=== PATIENT | female | born 1990 | race Two or more races ===

== ENCOUNTER 2017-03-13 22:33 | Emergency (ER) | payer OTHER ==
[~2017-03-13] VITALS: Ht 154.9 cm; Wt 54.4 kg
[~2017-03-13 22:33] MED LIST: ACYCLOVIR400 MG ORAL; CEPHALEXIN500 MG ORAL; DIFLUCAN150 MG PO; KEFLEX500 MG ORAL; PRENATAL FORMU1 EAC2 ORAL
[2017-03-13] MEDS ORDERED: NKM (22:56)
--- NOTE | 2017-03-13 23:22 | Emergency Room Report ---
History of Present Illness General Chief Complaint: Skin Rash/Abscess Source: Patient Present Illness HPI Patient presents with complaints of diffuse rash upper arms back lower extremity Onset earlier today Patient denies any fevers Denies any headache or visual changes denies any neck pain or photophobia She had some mild bodyache Denies any change in diet denies any medications Denies any shortness of breath or difficulty breathing Allergies: Coded Allergies: NO KNOWN ALLERGIES (Unverified Allergy, Unknown, 07/29/15) Patient History Past Medical History: see triage record Pertinent Family History: none Last Menstrual Period: unk Reviewed Nursing Documentation: PMH: Agreed, PSxH: Agreed Nursing Documentation-PMH Past Medical History: No Stated History Review of Systems All Other Systems: negative except mentioned in HPI Physical Exam Vital Signs Date Time Temp Pulse Resp B/P Pulse Ox O2 Delivery O2 Flow Rate FiO2 03/13/17 22:53 98.8 101 18 116/66 100 Room Air Sp02 EP Interpretation: reviewed, normal General Appearance: well appearing, no apparent distress Head: normocephalic, atraumatic Eyes: bilateral eye EOMI, bilateral eye PERRL ENT: hearing grossly normal, normal pharynx, TMs + canals normal, uvula midline Neck: full range of motion, supple, no meningismus, no bony tend Respiratory: lungs clear, normal breath sounds, no rhonchi, no respiratory distress, no retraction, no accessory muscle use Cardiovascular #1: normal peripheral pulses, regular rate, rhythm, no edema, no gallop, no JVD, no murmur Gastrointestinal: normal bowel sounds, non tender, soft, no mass, no organomegaly, non-distended, no guarding, no hernia, no pulsatile mass, no rebound Genitourinary: no CVA tenderness Musculoskeletal: normal inspection Neurologic: oriented x3, responsive, 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, motor strength/ tone normal, sensory intact Psychiatric: mood/affect normal Skin: other - Diffuse nonspecific dermatitis involving the upper arms, upper chest and back area, there are several areas of urticarial lesion, no obvious dermatomal pattern Lymphatic: normal inspection, no adenopathy Medical Decision Making Diagnostic Impression: Primary Impression: Additional Impression: Rash and other nonspecific skin eruption ER Course Prior to being given medication patient had obtained which was positive This is a knee diagnosis with the patient She does have abnormal menstrual cycle however was not aware of being Given the lack of any abdominal pain or vomiting Given the lack of any vaginal bleeding or spotting further investigation for possible ectopic or other acute pathology regarding was not obtained Patient received medication for the rash Could be potentially related to the however no signs of any organ failure or clinical emergency Patient will have symptomatic intervention and requires close outpatient followup Labs Test 03/13/17 23:13 Urine HCG, Qualitative Positive Chest X-Ray Diagnostic Results Chest X-Ray Ordered: No Last Vital Signs Date Time Temp Pulse Resp B/P Pulse Ox O2 Delivery O2 Flow Rate FiO2 03/13/17 22:53 98.8 101 18 116/66 100 Room Air Status: improved Disposition: HOME, SELF-CARE Condition: Stable Scripts Ranitidine Hcl* (ZANTAC*) 150 Mg Tablet 150 MG ORAL DAILY, #10 TAB Prov: BRIDGET SINCLAIR D.O. 03/14/17 Diphenhydramine HCl (Benadryl) 25 Mg Capsule 25 MG PO Q12HR, #10 CAP Prov: BRIDGET SINCLAIR D.O. 03/14/17 Additional Instructions: Patient is provided with the discharge instructions notified to follow up with primary doctor in the next 2-3 days otherwise return to the er with any worsening symptoms. Please note that this report is being documented using [employer] technology. This can lead to erroneous entry secondary to incorrect interpretation by the dictating instrument. BRIDGET SINCLAIR D.O. Mar 13, 2017 23:22
[2017-03-13] MEDS ORDERED: Solu-MEDROL 125mg Inj IM ONE (23:30)
[2017-03-14] MEDS ORDERED: RANITIDINE HCL150 MG ORAL (00:32)
[2017-03-14] MEDS ORDERED: BENADRYL25 M3 PO (00:32)
[2017-03-14 00:42] VITALS: BP_SYST 116; BP_SYST 128; BP_DIAS 66; BP_DIAS 78
== END 2017-03-14 00:43 | disposition home or self-care (01) ==
LOC: EMR 23:25
DX: O26.90 Pregnancy related conditions, unspecified, unspecified trimester (principal); R21 Rash and other nonspecific skin eruption
CPT/HCPCS: 81025; 99284